=== PATIENT | female | born 1970 | race Caucasian/White ===

== ENCOUNTER 2016-12-15 17:08 | Emergency (ER) | payer OTHER ==
[~2016-12-15] VITALS: Ht 165.1 cm; Wt 78.6 kg
[~2016-12-15 17:08] MED LIST: KLN1X PO; PRED20TA PO; PREG200C PO; PRVHFAIN INH; TOPI50TA16 PO; TRAM-10 PO; VORT1TAB PO
[2016-12-15 17:13] VITALS: TEMP 36.7; Ht 165.1 cm; Wt 78.6 kg
[2016-12-15] MEDS ORDERED: TRAM-10 PO (19:18)
[2016-12-15] MEDS ORDERED: PRED20TA PO (19:18)
[2016-12-15] MEDS ORDERED: TRAMADOL HCL 50 MG TAB PO STA (19:19)
--- NOTE | 2016-12-15 19:19 | EMERGENCY ROOM VISIT NOTE ---
ED Visit Note First contact with patient: 18:30 CHIEF COMPLAINT: Worsening low back pain over the last several days HISTORY OF PRESENT ILLNESS: Patient is a 45-year-old white female with past medical history including chronic low back pain who presents emergency department for evaluation of worsening low back pain over the last several days. She reports a history of degenerative disc disease, peripheral neuropathy , "cysts on her spine" and chronic low back pain. She has reportedly been evaluated by neurology, pain management and orthopedic spine surgery. She has undergone multiple diagnostic tests including CTs, MRIs, EMG/nerve conduction studies and epidural steroid injections. She apparently has been told that she is not a surgical candidate. Patient denies that she is on medications regularly for her pain. She states that she has chronic pain but is usually able to tolerate it. She believes that it became exacerbated by recent cleaning. She denies any falls or direct trauma to the area. She has tried heat, Tylenol, ibuprofen and Flexeril. She is on clonazepam and Lyrica chronically. She describes pain across her entire low back, primarily in the left buttocks that radiates down the left leg to the left heel. She does report chronic numbness and tingling into the lower extremities. She denies any bowel or bladder incontinence, saddle anesthesias or leg weakness. She rated her pain a 7/10. REVIEW OF SYSTEMS: Review of systems as per HPI. All other systems reviewed were negative. 10 systems reviewed. PMH: Electronic medical records are reviewed and summarized as above/below. See Problem List. SOCIAL HISTORY: Patient lives at home. Smoker. She is disabled. PHYSICAL EXAM: Vital Signs: Reviewed Nurse's notes. CONSTITUTIONAL: Patient is 45-year-old white female who is awake and alert and laying on the gurney in mild distress due to her back pain. Family members are at the bedside. HEART: Regular rate and rhythm. LUNGS: Clear to auscultation. ABDOMEN: Bowel sounds are present. Abdomen is soft, nontender and nondistended. No guarding, rebound or rigidity. SPINE: Tenderness in the paraspinous muscles in the lumbar area. No tenderness over the SI joint or the sciatic notch. No pain over the greater trochanter. Patient is able to toe and heel rise without difficulty. She has discomfort with flexion, rotation and lateral bending. EXTREMITIES: Normal strength including dorsi-flexion and plantar flexion of the ankles, flexion and extension of the knees and flexion of the hips. Negative bilateral straight leg raising, normal and symmetrical knee and ankle reflexes. EMERGENCY DEPARTMENT COURSE: The patient was seen and assessed as above. Her old records are reviewed. She has only one prior visit to our emergency department for back pain in the fall. Patient was reviewed in the [facility] Prescription Drug Monitoring Program, and there were no red flags noted. The patient presents to the emergency department for evaluation of an exacerbation of her chronic low back pain. She does not have any worrisome physical exam findings to indicate acute cord compression or cauda equina syndrome. There was no trauma to any great radiographs, particularly given the chronic nature of the patient's pain. The patient was provided a prescription for prednisone and Ultram. She was given her first dose in the emergency department and was instructed not to drive. She was encouraged to follow up with her primary care provider for further care and management of her chronic low back pain. She rated her discomfort a 7/10 at discharge. Problem List Medical Problems: (1) Anxiety Status: Chronic (2) Bipolar disorder Status: Chronic (3) Chronic low back pain Status: Chronic (4) COPD (chronic obstructive pulmonary disease) Status: Chronic (5) Low back pain Status: Resolved (6) Peripheral neuropathy Status: Chronic Current/Historical Medications Scheduled Clonazepam (Clonazepam), 1 MG PO BID Prednisone (Prednisone), 0 PO DAILY Pregabalin (Lyrica), 200 MG PO TID Topiramate (Topamax), 50 MG PO BID Scheduled PRN Albuterol (Ventolin Hfa), 2 PUFFS INH QID PRN for SOB/Wheezing Tramadol (Ultram), 1-2 TABS PO Q4H PRN for Pain Allergies Coded Allergies: Penicillins (Unverified Allergy, Severe, HIVES AND SWELLING, 12/15/16) Vital Signs Date Time Temp Pulse Resp B/P Pulse Ox O2 Delivery O2 Flow Rate FiO2 12/15/16 19:40 91 18 124/83 96 12/15/16 17:13 36.7 99 16 138/87 97 Room Air Medications Administered Medications (Trade) Dose Ordered Sig/Alex Route Start Time Stop Time Status Last Admin Dose Admin Prednisone (PredniSONE TAB) 60 mg NOW STAT PO 12/15/16 19:19 12/15/16 19:20 DC 12/15/16 19:33 60 MG Tramadol HCl (Ultram Tab) 100 mg NOW STAT PO 12/15/16 19:19 12/15/16 19:20 DC 12/15/16 19:34 100 MG Departure Information Impression Primary Impression: Exacerbation of chronic back pain Prescriptions Prednisone (Prednisone) 20 Mg Tab 0 PO DAILY, #18 TAB 3 DAILY FOR 3 DAYS, THEN 2 DAILY FOR 3 DAYS, THEN 1 DAILY FOR 3 DAYS. Prov: Melissa Morris PA 12/15/16 Tramadol (Ultram) 50 Mg Tab 1-2 TABS PO Q4H Y for Pain, #20 TAB For Initial Treatment Prov: Melissa Morris PA 12/15/16 Referrals Arsen Valentino PA-C (PCP) Patient Instructions My [facility] Additional Instructions DO NOT drive, drink alcohol, operate machinery, or perform dangerous activities today. You were given medications in the ER that can affect your ability to safely function or operate a vehicle. Prednisone 20mg: Once daily until the prescription is finished. It is best to take this earlier in the day as some patients note occasional difficulty falling asleep when taken in the late evening. Tramadol (Ultram) 50mg: Take 1-2 pills every four hours for breakthrough pain. Avoid alcohol, operating machinery or dangerous equipment, working on ladders or roofs, DRIVING, or situations where being under the influence may be dangerous. It is recommended to use an [id number] stool softener such as Colace, 100mg twice daily while taking this medication to avoid constipation. Ibuprofen(Motrin, Advil) may be used for fever or pain. Use 600mg every six hours as needed. Take with food. Avoid using more than 2400mg in a 24 hour period. Do not use 2400mg per day for more than three consecutive days without physician direction. Prolonged inappropriate use can lead to stomach upset or ulcers. This medication can be taken if you need to drive, work, or perform activities which may be dangerous when taking narcotic pain medication. (AND/OR) Acetaminophen(Tylenol) may be used for fever or pain. Use 1000mg every six hours as needed. Avoid using more than 3000mg in a 24 hour period. This medication can be taken if you need to drive, work, or perform activities which may be dangerous when taking narcotic pain medication. Rest and avoid heavy lifting until your symptoms resolve and then gradually return to full activity. A good rule of thumb is if it hurts your back to perform a certain activity, then it should be avoided until you are healthy again. A heating pad, warm compresses, or a hot shower may help with tight muscles and can be done several times a day as needed. Continue current medications. Return to the ER immediately for any numbness, tingling, severe pain, loss of control of your bowels or bladder, inability to walk, or as needed. Follow up with your primary care physician within 3-5 days for a recheck of your current condition.
[2016-12-15 19:40] VITALS: BP 124/83; PULSE 91; O2SAT 96
== END 2016-12-15 19:40 | disposition home or self-care (01) ==
LOC: C.EDB 17:09 → C.EDD 19:40
DX: M54.5 Low back pain (principal); G89.29 Other chronic pain; R20.0 Anesthesia of skin; F41.9 Anxiety disorder, unspecified; F31.9 Bipolar disorder, unspecified; J44.9 Chronic obstructive pulmonary disease, unspecified; G62.9 Polyneuropathy, unspecified; F17.200 Nicotine dependence, unspecified, uncomplicated; Z79.899 Other long term (current) drug therapy; Z88.0 Allergy status to penicillin

== ENCOUNTER 2017-01-23 14:33 | Emergency (ER) | payer OTHER ==
[~2017-01-23] VITALS: Ht 165.1 cm; Wt 77.7 kg
[~2017-01-23 14:33] MED LIST changes: -VORT1TAB PO
[2017-01-23 14:42] VITALS: TEMP 36.9; Ht 165.1 cm; Wt 77.7 kg
[2017-01-23] MEDS ORDERED: CYCL10TA6 PO (15:14)
[2017-01-23] MEDS ORDERED: HYDR-5688 PO (15:14)
--- NOTE | 2017-01-23 15:16 | EMERGENCY ROOM VISIT NOTE ---
ED Visit Note First contact with patient: 14:56 CHIEF COMPLAINT: "Back pain". HISTORY OF PRESENT ILLNESS: This 46-year-old female patient presents to the emergency department via private vehicle coming by son complaining of pain in the upper and low back which began 4 days ago. The patient states that she was at home this past Saturday and was attempting to reinstall the air conditioner and when she went to lift the air conditioner she did so by bending over at the waist and attempt to lift with her upper back. She states that she developed pain around the shoulder regions posteriorly and also in the low back. She states this has seemed to exacerbate her low back pain and now the muscle seems very tense between her shoulders. She states she has taken Tylenol, ibuprofen and Midol with minimal relief. She states that she follows with [facility], Dr. Delaney for her pain. She states she has had CTs, MRIs and x- rays in the past. She states that at this time she does not appear to be operable. She denies any vaginal discharge, urinary symptoms, fevers, chills, nausea, vomiting, chest pain, shortness of breath, lower extremity weakness, bowel or bladder incontinence, numbness or tingling in genital region, arm pain , arm weakness. She states the tramadol makes her sick. REVIEW OF SYSTEMS: A review of systems was performed with positives and pertinent negatives listed in the history of present illness. All other systems were reviewed and are negative. ALLERGIES: Penicillins MEDICATIONS: As noted below. PMH: Bronchitis, ulcers, cholecystectomy, partial removal of cervix, ablation, chronic back pain SOCIAL HISTORY: Patient is currently employed, lives with her son and fianc. She admits to tobacco use and denies alcohol use. PHYSICAL EXAM: VITALS: Vitals are noted on the nurse's note and reviewed by myself. Vital signs stable. GENERAL: A 46-year-old female, in no acute distress, nondiaphoretic, well- developed well-nourished. SKIN: The skin was without rashes, erythema, edema, or bruising. Capillary refill less than 2 seconds. NECK: Supple without nuchal rigidity. No cervical spine tenderness. No paraspinous muscle tenderness. HEART: Regular rate and rhythm without murmurs gallops or rubs. LUNGS: Clear to auscultation bilaterally without wheezes, rales or rhonchi. ABDOMEN: Positive bowel sounds x 4. Normal tympanic percussion. Soft, nontender, without masses or organomegaly. Moran sign negative. MUSCULOSKELETAL: No muscle atrophy, erythema, or edema noted of the back. There is positive tenderness over the lumbar spinous processes. There is also tenderness more pronounced over the paraspinous muscles of the lumbar superior thoracic spine. There is no tenderness over the thoracic spine however there is tenderness over the paraspinous muscles. There are positive muscle spasms present. The patient is slow to move around with maximum tenderness with in the superior lumbar and thoracic paraspinous musculature region. Negative straight leg raise test. NEURO: Patient was alert and oriented to person place and time. Normal sensation to light and sharp touch. Deep tendon reflexes 2+ in the lower extremities. Strength 5/5 and equal in the bilateral lower extremities and upper extremities. EMERGENCY DEPARTMENT COURSE: The patient was seen and evaluated as above. After obtaining a thorough history and physical examination, it is noted that I cared for the patient on a previous visit for back pain, and this does appear similar. She has a mechanical mechanism of injury consistent with lifting causing strain of the thoracic paraspinous musculature as well as an acute exacerbation of her chronic low back pain. She has no neurologic deficits. Vital signs are stable. No evidence of cauda equina syndrome. No chest pain or shortness of breath. I do believe this time the patient can be treated symptomatically with close follow-up in the outpatient setting. Because she drove today, she'll be given a prescription for Flexeril as well as hydrocodone. These are both short-term. She was educated upon use and warnings regarding these. She was educated upon management of her back pain, had questions prior to discharge and was discharged home in good condition. Again I do not suspect any emergent process. In the evaluation and treatment of this patient the following differential diagnoses were entertained: Lumbar strain, sprain, DE, PE, among others. Problem List Medical Problems: (1) Anxiety Status: Chronic (2) Bipolar disorder Status: Chronic (3) Chronic low back pain Status: Chronic (4) COPD (chronic obstructive pulmonary disease) Status: Chronic (5) Low back pain Status: Resolved (6) Peripheral neuropathy Status: Chronic Current/Historical Medications Scheduled Clonazepam (Clonazepam), 1 MG PO BID Cyclobenzaprine Hcl (Flexeril), 10 MG PO TID Pregabalin (Lyrica), 200 MG PO TID Topiramate (Topamax), 50 MG PO BID Scheduled PRN Albuterol (Ventolin Hfa), 2 PUFFS INH QID PRN for SOB/Wheezing Hydrocodone/Acetaminophen 5MG/325MG (Sunset 5MG/325MG), 1-2 TABLET PO Q6 PRN for Pain Allergies Coded Allergies: Penicillins (Verified Allergy, Severe, HIVES AND SWELLING, 01/23/17) Vital Signs Date Time Temp Pulse Resp B/P Pulse Ox O2 Delivery O2 Flow Rate FiO2 01/23/17 15:23 83 16 134/86 97 01/23/17 14:42 36.9 86 16 97 Room Air Departure Information Impression Primary Impression: Strain of lumbar region Additional Impression: Strain of thoracic region Dispostion Home / Self-Care Condition GOOD Prescriptions Hydrocodone/Acetaminophen 5MG/325MG (Sunset 5MG/325MG) Tab 1-2 TABLET PO Q6 Y for Pain, #12 TAB For Initial Treatment Prov: Benson Lucas PA-C 01/23/17 Cyclobenzaprine Hcl (FLEXERIL) 10 Mg Tab 10 MG PO TID for 7 Days, #21 TAB Prov: Benson Lucas PA-C 01/23/17 Referrals No Doctor, Assigned (PCP) Patient Instructions My [facility] Additional Instructions You have been treated in the Emergency Department for Back Pain. You have been prescribed NORCO to be used for pain control. This is a narcotic medication. You cannot drive or consume alcohol while on this medicine. This medicine should only be used for pain that cannot be controlled with over-the- counter pain medicines. DO NOT TAKE WITH TYLENOL!! You have been prescribed Flexeril (cyclobenzaprine) 1-2 tabs orally, three times per day. Do NOT exceed 30 mg (6 tabs) per day. Take your first dose at bedtime as it can make you drowsy. Always take all medications as prescribed. For pain control, you can use the following vprm-sty-tqruyim medicines (if >12 yo): - Regular strength (325mg/tab) Tylenol (acetaminophen) 2 tabs every 4-6 hours as needed. Do not exceed 12 tablets in a 24 hour period. Avoid taking more than 3 grams (3000 mg) of Tylenol per day. This includes any other sources of acetaminophen you may take on a regular basis. DO NOT TAKE WITH NORCO - Regular strength (200 mg/tab) Advil (ibuprofen) 1-2 tabs every 4-6 hours as needed. Do not exceed a dose of 3200 mg per day. If this is an acute injury, ice can be applied to the area of pain for the first 3 days to help decrease pain and inflammation. After the first 3 days, a heating pad can be used over the area for continued soothing relief. You should schedule a follow-up appointment in 2-3 days with your Primary Care Provider for further evaluation and treatment of your back pain. DR. MARCANO Return to the Emergency Department if your current symptoms worsen despite treatment course outlined above, or if you develop any of the following symptoms : intractable pain despite aforementioned treatment course, loss of control of your bowel or bladder, numbness or tingling in your groin, or development of a fever. Please return to the emergency department with any new/concerning symptoms. Problem Qualifiers
[2017-01-23 15:23] VITALS: BP 134/86; PULSE 83; O2SAT 97
== END 2017-01-23 15:23 | disposition home or self-care (01) ==
LOC: C.EDB 14:35 → C.EDD 15:23
DX: S39.012A Strain of muscle, fascia and tendon of lower back, initial encounter (principal); X50.1XXA Overexertion from prolonged static or awkward postures, initial encounter; Y92.019 Unspecified place in single-family (private) house as the place of occurrence of the external cause; F41.9 Anxiety disorder, unspecified; F31.9 Bipolar disorder, unspecified; G89.29 Other chronic pain; J44.9 Chronic obstructive pulmonary disease, unspecified; G62.9 Polyneuropathy, unspecified; Z72.0 Tobacco use

== ENCOUNTER 2017-09-07 16:45 | Emergency (ER) | payer OTHER ==
[~2017-09-07] VITALS: Ht 165.1 cm; Wt 78.3 kg
[~2017-09-07 16:45] MED LIST changes: -PRED20TA PO; -TRAM-10 PO
[2017-09-07 16:48] VITALS: Ht 165.1 cm; Wt 78.3 kg
[2017-09-07] MEDS ORDERED: HYDR-5688 PO (17:18)
[2017-09-07 18:00] VITALS: BP 128/86; PULSE 100; TEMP 36.9; O2SAT 98
--- NOTE | 2017-09-07 19:34 | EMERGENCY ROOM VISIT NOTE ---
ED Visit Note First contact with patient: 16:52 Chief Complaint: I'm having lower back pain. History of Present Illness: Ms. Feliciano is a 46-year-old white female who ambulates into the ED complaining of lumbar back pain. Historically patient reports she has chronic lumbar back pain for over 10 years. She reports she has had an MRI performed and has seen a back specialist who told her that she has degenerative disc disease and cystic like structures on her lumbar back but nobody recommended surgery. Additionally she reports she has a history of bilateral chronic peripheral neuropathy in her legs. Patient reports she has had an exacerbation of her chronic pain for multiple weeks. She was seen earlier in the month by a practitioner was given a three- day course of narcotics without relief of her discomfort. Currently she is complaining of pain in the L5-S1 area. She describes it as a sharp discomfort. She rates her discomfort 8/10. The pain is radiating into the bilateral buttocks and the sacroiliac joint area. The pain on her left is also radiating down her leg to the level of the ankle. Her pain worsens with all movement of the back and palpation. She is not identified any alleviating factors related to the pain. She reports she has been using the narcotics that was given to her earlier in the month approximately 10 days ago with minimal relief of her discomfort. She denies any associated symptoms with her back pain including fevers, chills, sweats, skin eruptions, skin color changes, recent trauma, falls, motor vehicle accident, abdominal pain, nausea/vomiting, diarrhea/constipation, rectal bleeding, black/tarry stools, urinary symptoms, hematuria, vaginal bleeding, vaginal discharge, genital paresthesias, bowel and bladder dysfunction, worsening paresthesias of her lower extremities, weakness of her lower extremities. Review of Systems: As noted above in history of present illness. 8 body systems were reviewed and found to be negative as noted above. Past Medical History: As previously noted and COPD, anxiety, bipolar disorder, status post cholecystectomy, uterine ablation. Current Medications: Topamax, albuterol, clonazepam. Allergies to Medications: Penicillin. Social History: Patient is not currently employed; she feels safe in her home environment; she admits to tobacco use and denies alcohol use. Physical Examination: Vital Signs: Date Time Temp Pulse Resp B/P (MAP) Pulse Ox O2 Delivery O2 Flow Rate FiO2 09/07/17 16:48 36.9 100 18 128/86 98 Room Air GENERAL: 46-year-old female in mild to moderate distress due to pain, nontoxic- appearing, afebrile and hemodynamically stable. NEUROLOGICAL: Awake, alert and oriented to person, place and time. Answering questions appropriately and following commands. Normal gait. Good hand eye coordination. No focal motor sensory deficits. SKIN: Warm, dry and pink. No soft tissue eruptions or trauma noted. HEENT: Atraumatic and normocephalic. BACK: No tenderness over the bony cervical and thoracic spine. Moderate tenderness in the L4 to S1 bony spine without bony deformity, bony crepitus, step-offs, swelling or ecchymosis. Moderate tenderness in the bilateral paraspinous spinous musculature in the lumbar spine without palpable spasm. Decreased range of motion in all movement due to pain. Negative straight leg raise test. No CVA tenderness. THORAX: Lungs sounds are clear to auscultation and equal bilaterally with symmetrical chest wall. ABDOMEN: Flat, soft and nontender. Positive bowel sounds in all quadrants. No guarding, rigidity or organomegaly. EXTREMITIES: Moves all extremities well on command and with purpose. All distal neurovascular statuses are intact and equal bilaterally. 2+ patellar and Achilles deep tendon reflexes intact and equal bilaterally. 3/5 muscle strength in all movements of the hips, knees, ankles. ED Course: Patient is assessed as noted above. Patient's medication list was reviewed. Patient was educated about today's findings and instructed on her treatment plan ; she verbalized understanding and agreement with this plan. Clinical Impression: Acute on chronic lumbar back pain. Disposition: Patient discharged home in stable condition accompanied by male friend; prior to departure she was reassessed and subjectively reported she was feeling slightly better and rated her discomfort 6/10. Plan: Comfort measures were discussed with the patient including proper lifting and moving techniques, sliding pain scale of acetaminophen, ibuprofen and hydrocodone; appropriate narcotic precautions were discussed with the patient and her name was checked on the state database and no red flags were noted, ice. A she was encouraged to follow-up with her insurance company to see what providers were available to her for chronic pain. Patient was encouraged to follow-up with her primary care provider for recheck and help with referral to chronic pain. Patient was encouraged return ED for worsening/uncontrolled pain, fevers, abdominal pain, rectal/genital paresthesias, bowel and bladder dysfunction, lower extremity weakness/numbness or any new/concerning symptoms.
== END 2017-09-07 18:00 | disposition home or self-care (01) ==
LOC: C.EDB 16:49 → C.EDD 18:00
DX: M54.5 Low back pain (principal); G89.29 Other chronic pain; J44.9 Chronic obstructive pulmonary disease, unspecified; F41.9 Anxiety disorder, unspecified; F31.9 Bipolar disorder, unspecified; Z79.899 Other long term (current) drug therapy; F17.200 Nicotine dependence, unspecified, uncomplicated